=== PATIENT | male | born 1960 ===

== ENCOUNTER 2022-04-11 17:44 | Observation (INO) | payer OTHER ==
[~2022-04-11] VITALS: Ht 172.7 cm; Wt 75.0 kg
[2022-04-11] VITALS (12 sets, daily range): BP systolic 107–162; BP diastolic 67–97
[2022-04-11 19:05] LABS: HEMATOCRIT 42.1 % (39.0-50.0); HEMOGLOBIN 14.5 g/dl (14.0-18.0); IMMATURE GRANULOCYTES 0.2 % (0.0-5.0); MEAN CELL VOLUME 87.9 fL CALC (80.0-100.0); MEAN CORPUSCULAR HGB 30.3 pG CALC (26.0-32.0); MEAN CORPUSCULAR HGB CONC 34.4 g/dL CAL (32.0-36.0); NEUT# 7.81 thou/uL (1.82-7.42); RED BLOOD COUNT 4.79 mill/uL (4.70-6.10); RED CELL DISTRI WIDTH 12.3 % (11.5-15.5)
[2022-04-11 19:16] LABS: ALBUMIN 4.8 g/dL (3.2-5.0); ALKALINE PHOSPHATASE 117 u/l (38-126); ANION GAP 17 (6-22 (CALC)); BILIRUBIN, TOTAL 0.5 mg/dL (0.0-1.4); BUN 15 mg/dL (9-20); BUN/CREATININE RATIO 18 (12-20 (CALC)); CARBON DIOXIDE 27 mmol/l (22-30); CHLORIDE 105 mmol/l (95-108); CREATININE 0.8 mg/dL (0.7-1.3); GFR FOR AFR.AMER. > 60 ML/MIN (>=60 (CALC)); GFR OTHER RACES > 60 ML/MIN (>=60 (CALC)); LIPASE 175 u/l (23-300); POTASSIUM 4.5 mmol/l (3.5-5.1); SGOT/AST 32 u/l (17-59); TOTAL PROTEIN 7.9 g/dL (6.3-8.2)
[2022-04-11 19:24] LABS: SODIUM 144 mmol/l (137-146)
[2022-04-12] VITALS (7 sets, daily range): BP systolic 107–120; BP diastolic 72–77
[2022-04-12 05:52] LABS: HEMATOCRIT 38.6 % (39.0-50.0); HEMOGLOBIN 13.5 g/dl (14.0-18.0); IMMATURE GRANULOCYTES 0.1 % (0.0-5.0); MEAN CELL VOLUME 88.1 fL CALC (80.0-100.0); MEAN CORPUSCULAR HGB 30.8 pG CALC (26.0-32.0); NEUT# 3.96 thou/uL (1.82-7.42); RED BLOOD COUNT 4.38 mill/uL (4.70-6.10); RED CELL DISTRI WIDTH 12.3 % (11.5-15.5)
[2022-04-12 06:44] LABS: ALBUMIN 3.9 g/dL (3.2-5.0); ALKALINE PHOSPHATASE 84 u/l (38-126); ANION GAP 12 (6-22 (CALC)); BILIRUBIN, TOTAL 0.7 mg/dL (0.0-1.4); BUN 13 mg/dL (9-20); BUN/CREATININE RATIO 18 (12-20 (CALC)); CARBON DIOXIDE 26 mmol/l (22-30); CHLORIDE 106 mmol/l (95-108); CREATININE 0.7 mg/dL (0.7-1.3); GFR FOR AFR.AMER. > 60 ML/MIN (>=60 (CALC)); GFR OTHER RACES > 60 ML/MIN (>=60 (CALC)); POTASSIUM 4.4 mmol/l (3.5-5.1); SGOT/AST 26 u/l (17-59); SODIUM 140 mmol/l (137-146)
[2022-04-12 06:50] LABS: TOTAL PROTEIN 6.3 g/dL (6.3-8.2)
[2022-04-12 10:48] LABS: CHOLESTEROL HDL RATIO 3.4 (<4.4 (CALC))
[2022-04-12] MEDS ORDERED: LIPITOR80 M1 PO (14:18)
[2022-04-12] MEDS ORDERED: AMLODIPINE BESY10 MG PO (14:19)
[2022-04-12] MEDS ORDERED: LISINOPRIL10 MG PO (14:20)
[2022-04-12] MEDS ORDERED: LEVOTHYROXIN150 MCG PO (14:21)
[2022-04-12] MEDS ORDERED: METFORMIN HYDR850 MG PO (14:24)
[2022-04-12] MEDS ORDERED: ASPIRIN EC LOW81 MG PO (14:26)
[2022-04-12] MEDS ORDERED: MULT VITAMI1 PO (14:29)
[2022-04-12] MEDS ORDERED: NITROSTAT0.4 MG SL (14:32)
[2022-04-12] MEDS ORDERED: ACETAMINOP160 MG/5 M PO (14:33)
[2022-04-12] MEDS ORDERED: ASPIRIN ADULT L81 M2 PO (15:31)
== END 2022-04-12 17:26 | disposition designated cancer center or children's hospital (05) | DRG 313 ==
LOC: ED 17:44 → ED-I 20:35 → ED 20:50 → MS2 20:51
PROVIDERS: Emergency Medicine; Nurse Practitioner Family; ADMIT Internal Medicine; ATTEND Internal Medicine
DX: R07.9 Chest pain, unspecified (principal); I10 Essential (primary) hypertension; E11.9 Type 2 diabetes mellitus without complications; I25.10 Atherosclerotic heart disease of native coronary artery without angina pectoris; I25.2 Old myocardial infarction; Z95.5 Presence of coronary angioplasty implant and graft; Z79.82 Long term (current) use of aspirin
CPT/HCPCS: G0378

== ENCOUNTER 2022-07-06 21:48 | Emergency (ER) | payer OTHER ==
[~2022-07-06] VITALS: Ht 172.7 cm; Wt 83.6 kg
[~2022-07-06 21:48] MED LIST: ACETAMINOP160 MG/5 M PO; AMLODIPINE BESY10 MG PO; ASPIRIN ADULT L81 M2 PO; ASPIRIN EC LOW81 MG PO; LEVOTHYROXIN150 MCG PO; LIPITOR40 M1 PO; LISINOPRIL10 MG PO; METFORMIN HYDR850 MG PO; MULT VITAMI1 PO; NITROSTAT0.4 MG SL
[2022-07-06 22:14] VITALS: BP 118/79
[2022-07-06 22:30] VITALS: BP 103/85
[2022-07-06] MEDS ORDERED: COREG6.25 MG PO (22:33)
[2022-07-06] MEDS ORDERED: OMEPRAZOLE20 MG PO (22:33)
[2022-07-06] MEDS ORDERED: CLOPIDOGREL75 MG PO (22:34)
[2022-07-06 23:01] VITALS: BP 111/93
[2022-07-06 23:06] LABS: BASO% 0.8 % (0-3); HEMATOCRIT 39.8 % (39.0-50.0); HEMOGLOBIN 13.3 g/dl (14.0-18.0); IMMATURE GRANULOCYTES 0.1 % (0.0-5.0); LYMPH% 35.6 % (15-41); MEAN CELL VOLUME 87.3 fL CALC (80.0-100.0); MEAN CORPUSCULAR HGB 29.2 pG CALC (26.0-32.0); MEAN CORPUSCULAR HGB CONC 33.4 g/dL CAL (32.0-36.0); MONO% 8.7 % (2-13); NEUT# 4.27 thou/uL (1.82-7.42); NEUT% 50.8 % (42-76); RED BLOOD COUNT 4.56 mill/uL (4.70-6.10); RED CELL DISTRI WIDTH 12.1 % (11.5-15.5)
[2022-07-06 23:15] VITALS: BP 112/76
[2022-07-06 23:17] LABS: ALBUMIN 4.3 g/dL (3.2-5.0); ALKALINE PHOSPHATASE 82 u/l (38-126); ANION GAP 12 (6-22 (CALC)); BUN 14 mg/dL (9-20); BUN/CREATININE RATIO 17 (12-20 (CALC)); CARBON DIOXIDE 25 mmol/l (22-30); CHLORIDE 106 mmol/l (95-108); CREATININE 0.8 mg/dL (0.7-1.3); GFR FOR AFR.AMER. > 60 ML/MIN (>=60 (CALC)); GFR OTHER RACES > 60 ML/MIN (>=60 (CALC)); MAGNESIUM 1.8 mg/dL (1.6-2.3); POTASSIUM 4.4 mmol/l (3.5-5.1); SGOT/AST 25 u/l (17-59); SODIUM 139 mmol/l (137-146)
[2022-07-06 23:23] LABS: ACT PARTIAL THROMBO TIME 25.8 SECONDS (20.0-32.5); BILIRUBIN, TOTAL 0.3 mg/dL (0.2-1.3); PROTHROMBIN TIME 10.4 SECONDS (9.0-12.5)
[2022-07-06 23:29] LABS: D-DIMER 0.17 mg/L (0.19-0.60)
[2022-07-06 23:30] VITALS: BP 107/76
[2022-07-06 23:45] VITALS: BP 110/73
[2022-07-07] VITALS: BP 110/71
[2022-07-07 00:15] VITALS: BP 117/80
[2022-07-07 00:31] VITALS: BP 93/56
[2022-07-07 00:38] VITALS: BP 93/56
== END 2022-07-07 01:12 | disposition designated cancer center or children's hospital (05) | DRG 204 ==
LOC: ED 21:48
PROVIDERS: Family Medicine
DX: R06.02 Shortness of breath (principal); I10 Essential (primary) hypertension; I25.2 Old myocardial infarction; Z20.822 Contact with and (suspected) exposure to COVID-19